=== PATIENT | female | born 1975 | race Caucasian/White ===

== ENCOUNTER 2018-11-25 00:06 | Emergency (ER) | payer MEDICAID ==
[~2018-11-25] VITALS: Ht 167.6 cm; Wt 120.5 kg
[~2018-11-25 00:06] MED LIST: ALDACTONE50 MG PO; BACTRIM DS 8001 TAB PO; BIRTH CONTROL PILL; CEPHALEXIN500 M1 PO; DARVOCET N 101 UDTAB PO; DOXYCYCLINE 10100 MG PO; LOPRESSOR 550 MG/TAB PO; LORTAB 5/500 501 TAB PO; MAREPA1200 MG PO; METOPROLOL SUCC50 MG PO; MINOCYCLIN100 MG/CAP PO; MULTIPLE VITAMI1 CAP PO; NAPROSYN500 MG PO; PERCOCET 325 MG1 TA2 PO; PREDNISONE20 MG PO; PROAIR HFA0.09 MG/AC IH; PROMETHAZINE12.5 M5 PO; RANITIDINE150 MG PO; ZANTAC 150MG T150 MG PO
[2018-11-25 00:10] VITALS: BP 177/98
[2018-11-25] MEDS ORDERED: DOXYCYCLINE 10100 MG PO (00:34)
[2018-11-25 00:43] VITALS: PULSE 104; TEMP 98.8
== END 2018-11-25 01:00 | disposition home or self-care (01) ==
LOC: COL.ER 00:06
DX: N61.1 Abscess of the breast and nipple (principal); F17.210 Nicotine dependence, cigarettes, uncomplicated; Z88.8 Allergy status to other drugs, medicaments and biological substances

== ENCOUNTER 2018-12-04 02:13 | Emergency (ER) | payer MEDICAID ==
[~2018-12-04] VITALS: Ht 167.6 cm; Wt 118.2 kg
[2018-12-04 02:22] VITALS: TEMP 98.8
[2018-12-04 03:22] LABS: BASO # 0.1 (0.0-0.2); BASO % 0.4 % (0.0-2.0); EOS # 0.1 (0.0-0.7); EOS % 0.6 % (0-4.0); GRAN % 72.1 % (42.2-75.2); HEMATOCRIT 42.1 % (37.0-47.0); HEMOGLOBIN 13.5 g/dl (12.5-16.0); LYMPH % 21.5 % (20.0-51.0); MEAN CELL VOLUME 96 fl (80.0-100.0); MEAN CORPUSCULAR HEMOGLOBIN 31 pg (27.0-31.0); MEAN CORPUSCULAR HGB CONC 32 g/dl (33.0-37.0); MEAN PLATELET VOLUME 10.4 fl (7.4-10.4); MONO # 0.7 (0.1-0.6); MONO % 5.1 % (1.7-9.3); PLATELET COUNT 360 K/mm3 (130-400); RED BLOOD COUNT 4.38 M/mm3 (4.10-5.30); REDCELL DISTRIBUTION WIDTH-CV 13.4 % (11.5-14.5)
[2018-12-04 03:31] LABS: ALBUMIN 4.1 gm/dL (3.5-5.0); BILIRUBIN,TOTAL 0.5 mg/dL (0.0-1.0); CALCIUM 9.3 mg/dL (8.4-10.2); CREATININE, serum 0.81 (0.52-1.25); POTASSIUM 3.8 mmol/L (3.4-5.0); TOTAL PROTEIN 7.4 gm/dL (6.4-8.2)
[2018-12-04] MEDS ORDERED: LOPRESSOR 550 MG/TAB PO (05:22)
[2018-12-04] MEDS ORDERED: COMPAZINE 110 MG/TAB PO (05:24)
[2018-12-04 05:30] VITALS: BP 125/76; PULSE 82
== END 2018-12-04 05:36 | disposition home or self-care (01) ==
LOC: COL.ER 02:13
PROVIDERS: Emergency Medicine
DX: R51 Headache (principal); I10 Essential (primary) hypertension; E66.9 Obesity, unspecified; F17.210 Nicotine dependence, cigarettes, uncomplicated; Z68.41 Body mass index [BMI] 40.0-44.9, adult
CPT/HCPCS: J0780; J7030

== ENCOUNTER 2019-01-31 18:31 | Emergency (ER) | payer SELFPAY ==
[~2019-01-31] VITALS: Ht 167.6 cm; Wt 118.2 kg
[~2019-01-31 18:31] MED LIST changes: +COMPAZINE 110 MG/TAB PO
[2019-01-31 18:37] VITALS: BP 167/86; TEMP 99.5
[2019-01-31] MEDS ORDERED: PEPCID AC 10MG10 MG PO (18:42)
[2019-01-31 20:38] VITALS: PULSE 87
== END 2019-01-31 20:40 | disposition home or self-care (01) ==
LOC: COL.ER 18:31
DX: S82.002A Unspecified fracture of left patella, initial encounter for closed fracture (principal); W10.9XXA Fall (on) (from) unspecified stairs and steps, initial encounter; Y92.009 Unspecified place in unspecified non-institutional (private) residence as the place of occurrence of the external cause
CPT/HCPCS: L1846

== ENCOUNTER 2020-12-03 04:58 | Emergency (ER) | payer BC, OTHER ==
[~2020-12-03] VITALS: Ht 167.6 cm; Wt 109.1 kg
[~2020-12-03 04:58] MED LIST changes: +PEPCID AC 10MG10 MG PO
[2020-12-03 05:04] VITALS: TEMP 97.6
[2020-12-03] MEDS ORDERED: AMOXICILLIN 8751 TAB PO (05:42)
[2020-12-03 05:56] VITALS: BP 125/77; PULSE 93
== END 2020-12-03 05:56 | disposition home or self-care (01) ==
LOC: COL.ER 04:58
DX: S61.210A Laceration without foreign body of right index finger without damage to nail, initial encounter (principal); F17.210 Nicotine dependence, cigarettes, uncomplicated; W26.0XXA Contact with knife, initial encounter

== ENCOUNTER → 2020-12-10 | Emergency (ER) | payer BC, OTHER ==
[~2020-12-10] MED LIST changes: +AMOXICILLIN 8751 TAB PO
[2020-12-10 17:38] VITALS: BP 132/98; PULSE 90; TEMP 98.3
== END ==
LOC: COL.ER 17:33
DX: Z48.02 Encounter for removal of sutures (principal)

== ENCOUNTER 2021-04-05 17:44 | Emergency (ER) | payer BC, OTHER ==
[~2021-04-05] VITALS: Ht 165.1 cm; Wt 109.1 kg
[2021-04-05 17:52] VITALS: TEMP 97.2
[2021-04-05 19:15] VITALS: BP 142/78; PULSE 76
== END 2021-04-05 19:15 | disposition home or self-care (01) ==
LOC: COL.ER 17:44
DX: S61.411A Laceration without foreign body of right hand, initial encounter (principal); S61.412A Laceration without foreign body of left hand, initial encounter; W31.89XA Contact with other specified machinery, initial encounter

== ENCOUNTER 2021-04-15 14:38 | Emergency (ER) | payer BC, OTHER ==
[2021-04-15 15:09] VITALS: BP 109/66; PULSE 102; TEMP 98.7
== END 2021-04-15 15:15 | disposition home or self-care (01) ==
LOC: COL.ER 14:38
DX: Z48.02 Encounter for removal of sutures (principal)